=== PATIENT | female | born 1970 | race Caucasian/White ===

== ENCOUNTER 2017-03-06 03:30 | Emergency (ER) | payer BC ==
[2017-03-06 03:39] VITALS: BP 189/112
--- NOTE | 2017-03-06 03:40 | EDM.PDOC ---
ED HPI GENERAL MEDICAL PROBLEM - General Chief Complaint: ENT Problem Stated Complaint: PAIN AND SWELLING IN LEFT EAR Time Seen by Provider: 03/06/17 03:37 - History of Present Illness INITIAL COMMENTS - FREE TEXT/NARRATIVE: HISTORY AND PHYSICAL: History of present illness: Patient 46-year-old female presents with concern of left ear pain she states she had swelling and discharge from the left ear but no fever chills nausea vomiting Review of systems: As per history of present illness and below otherwise all systems reviewed and negative. Past medical history: As per history of present illness and as reviewed below otherwise noncontributory. Surgical history: As per history of present illness and as reviewed below otherwise noncontributory. Social history: No reported history of drug or alcohol abuse. Family history: As per history of present illness and as reviewed below otherwise noncontributory. Physical exam: HEENT: Atraumatic, normocephalic, pupils reactive, negative for conjunctival pallor or scleral icterus, mucous membranes moist, throat clear, neck supple, nontender, trachea midline. Left external auditory canal is inflamed and swollen TM is visualized and is uninvolved Lungs: Clear to auscultation, breath sounds equal bilaterally, chest nontender. Heart: S1S2, regular, negative for clicks, rubs, or JVD. Abdomen: Soft, nondistended, nontender. Negative for masses or hepatosplenomegaly. Negative for costovertebral tenderness. Pelvis: Stable nontender. Genitourinary: Deferred. Rectal: Deferred. Extremities: Atraumatic, negative for cords or calf pain. Neurovascular unremarkable. Neuro: Awake, alert, oriented. Cranial nerves II through XII unremarkable. Cerebellum unremarkable. Motor and sensory unremarkable throughout. Exam nonfocal. Diagnostics: None Therapeutics: None Impression: #1 left otitis externa Definitive disposition and diagnosis as appropriate pending reevaluation and review of above. - Related Data Allergies Allergy/AdvReac Type Severity Reaction Status Date / Time No Known Allergies Allergy Verified 11/07/15 11:18 Past Medical History - Past Health History Medical/Surgical History: Denies Medical/Surgical History Gastrointestinal History: Reports: Bowel Obstruction - Infectious Disease History Infectious Disease History: Reports: None Social & Family History - Family History Family Medical History: Noncontributory Cardiac: Reports: Heart Failure GI: Reports: Colon Polyps Endocrine/Metabolic: Reports: Diabetes, type II - Tobacco Use Smoking Status *Q: Never Smoker Second Hand Smoke Exposure: No - Alcohol Use Days Per Week of Alcohol Use: 2 Number of Drinks Per Day: 2 Total Drinks Per Week: 4 - Recreational Drug Use Recreational Drug Use: No ED ROS GENERAL - Review of Systems Review Of Systems: ROS reveals no pertinent complaints other than HPI. ED EXAM, GENERAL - Physical Exam Exam: See Below (See dictation) Departure - Departure Time of Disposition: 03:39 Disposition: Home, Self-Care 01 Condition: Good Clinical Impression: Otitis externa - Discharge Information Referrals: PCP,None [Primary Care Provider] - Additional Instructions: The following information is given to patients seen in the emergency department who are being discharged to home. This information is to outline your options for follow-up care. We provide all patients seen in our emergency department with a follow-up referral. The need for follow-up, as well as the timing and circumstances, are variable depending upon the specifics of your emergency department visit. If you don't have a primary care physician on staff, we will provide you with a referral. We always advise you to contact your personal physician following an emergency department visit to inform them of the circumstance of the visit and for follow-up with them and/or the need for any referrals to a consulting specialist. The emergency department will also refer you to a specialist when appropriate. This referral assures that you have the opportunity for followup care with a specialist. All of these measure are taken in an effort to provide you with optimal care, which includes your followup. Under all circumstances we always encourage you to contact your private physician who remains a resource for coordinating your care. When calling for followup care, please make the office aware that this follow-up is from your recent emergency room visit. If for any reason you are refused follow-up, please contact the [facility] emergency department at and asked to speak to the emergency department charge nurse. Cortisporin is prescribed Motrin/Tylenol as directed follow-up primary medical doctor 1-2 days return as needed as discussed
== END 2017-03-06 03:45 | disposition home or self-care (01) ==
LOC: MW.ED 03:30
DX: H60.92 Unspecified otitis externa, left ear (principal)
CPT/HCPCS: 99282

== ENCOUNTER 2017-06-08 08:22 | Day surgery (SDC) | payer BC ==
[~2017-06-08 08:22] MED LIST: Fluorescein 5 ML Vial ONE; Lactated Ringers 1,000 ML IV SCH; Sodium Chloride 0.9% 10 ML Syringe FLUSH PRN; Sodium Chloride 0.9% 2.5 ML Syringe FLUSH PRN; ceFAZolin 2 GM in Premix Bag 1 BAG IV ONE
--- NOTE | 2017-06-08 09:25 | PCM.PREANE ---
Preanesthetic Assessment - Anesthesia/Transfusion/Family Hx Anesthesia History: No Prior Anesthesia Transfusion History: Prior Transfusion Without Reaction - Physical Assessment NPO Status Date: 06/08/17 NPO Status Time: 03:00 O2 Sat by Pulse Oximetry: 98 Respiratory Rate: 18 Vital Signs: Last Vital Signs Temp 36.2 C 06/08/17 08:44 Pulse 78 06/08/17 08:44 Resp 18 06/08/17 08:44 BP 161/101 H 06/08/17 08:44 Pulse Ox 98 06/08/17 08:44 Height: 1.78 m Weight: 83.461 kg - Lab Values: Laboratory Last Values WBC 7.24 K/uL (4.0-11.0) 06/08/17 08:56 RBC 4.78 M/uL (4.30-5.90) 06/08/17 08:56 Hgb 15.2 g/dL (12.0-16.0) 06/08/17 08:56 Hct 44.0 % (36.0-46.0) 06/08/17 08:56 MCV 92.1 fL (80.0-98.0) 06/08/17 08:56 MCH 31.8 pg (27.0-32.0) 06/08/17 08:56 MCHC 34.5 g/dL (31.0-37.0) 06/08/17 08:56 RDW Std Deviation 43.0 fl (28.0-62.0) 06/08/17 08:56 RDW Coeff of Lauryn 13 % (11.0-15.0) 06/08/17 08:56 Plt Count 253 K/uL (150-400) 06/08/17 08:56 MPV 8.70 fL (7.40-12.00) 06/08/17 08:56 Nucleated RBC % 0.0 /100WBC 06/08/17 08:56 Nucleated RBCs # 0 K/uL 06/08/17 08:56 - Allergies Allergies/Adverse Reactions: Allergies Allergy/AdvReac Type Severity Reaction Status Date / Time No Known Allergies Allergy Verified 06/05/17 17:03 PreAnesthesia Questionnaire - Past Health History Medical/Surgical History: Denies Medical/Surgical History HEENT History: Reports: Other (See Below) Other HEENT History: wears glasses Gastrointestinal History: Reports: Other (See Below) Other Gastrointestinal History: some heartburn Genitourinary History: Reports: Urinary Incontinence 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: Reports: Fibroids, Neurological History: Reports: Migraines, Other (See Below) Other Neuro History: hx of motion sickness Hematologic History: Reports: Blood Transfusion(s) Other Hematologic History: after delivery of both children - Infectious Disease History Infectious Disease History: Reports: None - Past Surgical History HEENT Surgical History: Reports: None GI Surgical History: Reports: None - SUBSTANCE USE Smoking Status *Q: Never Smoker Second Hand Smoke Exposure: No Days Per Week of Alcohol Use: 2 Number of Drinks Per Day: 2 Total Drinks Per Week: 4 Recreational Drug Use History: No - HOME MEDS Home Medications: Home Meds . [No Known Home Meds] 03/06/17 [History] - CURRENT (IN HOUSE) MEDS Current Meds: Current Medications Lactated Ringer's (Ringers, Lactated) 1,000 mls @ 500 mls/hr IV .BOLUS OTONIEL Sodium Chloride (Saline Flush) 10 ml FLUSH ASDIRECTED PRN PRN Reason: Keep Vein Open Sodium Chloride (Saline Flush) 2.5 ml FLUSH ASDIRECTED PRN PRN Reason: Keep Vein Open Discontinued Medications Fluorescein Sodium (Ak-Fluor) Confirm Administered Dose 5 ml .ROUTE .STK-MED ONE Stop: 06/08/17 07:32 Cefazolin Sodium/Dextrose 2 gm (/ Premix) 50 mls @ 100 mls/hr IV ONETIME ONE Stop: 06/07/17 09:57
--- NOTE | 2017-06-08 09:26 | PCM.PREANE ---
Preanesthetic Assessment - Anesthesia/Transfusion/Family Hx Anesthesia History: No Prior Anesthesia Family History of Anesthesia Reaction: No Transfusion History: Prior Transfusion Without Reaction - Review of Systems General: No Symptoms Pulmonary: No Symptoms Cardiovascular: No Symptoms Gastrointestinal: No Symptoms Neurological: No Symptoms Other: Reports: None - Physical Assessment NPO Status Date: 06/08/17 NPO Status Time: 03:00 O2 Sat by Pulse Oximetry: 98 Respiratory Rate: 18 Vital Signs: Last Vital Signs Temp 36.2 C 06/08/17 08:44 Pulse 78 06/08/17 08:44 Resp 18 06/08/17 09:25 BP 161/101 H 06/08/17 08:44 Pulse Ox 98 06/08/17 09:25 Height: 1.78 m Weight: 83.461 kg ASA Class: 1 Mental Status: Alert & Oriented x3 Airway Class: Mallampati = 1 (veneer on maxillary incisors) Dentition: Reports: Normal Dentition ROM/Head Extension: Full Lungs: Clear to Auscultation, Normal Respiratory Effort - Lab Values: Laboratory Last Values WBC 7.24 K/uL (4.0-11.0) 06/08/17 08:56 RBC 4.78 M/uL (4.30-5.90) 06/08/17 08:56 Hgb 15.2 g/dL (12.0-16.0) 06/08/17 08:56 Hct 44.0 % (36.0-46.0) 06/08/17 08:56 MCV 92.1 fL (80.0-98.0) 06/08/17 08:56 MCH 31.8 pg (27.0-32.0) 06/08/17 08:56 MCHC 34.5 g/dL (31.0-37.0) 06/08/17 08:56 RDW Std Deviation 43.0 fl (28.0-62.0) 06/08/17 08:56 RDW Coeff of Lauryn 13 % (11.0-15.0) 06/08/17 08:56 Plt Count 253 K/uL (150-400) 06/08/17 08:56 MPV 8.70 fL (7.40-12.00) 06/08/17 08:56 Nucleated RBC % 0.0 /100WBC 06/08/17 08:56 Nucleated RBCs # 0 K/uL 06/08/17 08:56 - Allergies Allergies/Adverse Reactions: Allergies Allergy/AdvReac Type Severity Reaction Status Date / Time No Known Allergies Allergy Verified 06/05/17 17:03 - Anesthesia Plan Pre-Op Medication Ordered: None - Acknowledgements Anesthesia Type Planned: General Anesthesia Pt an Appropriate Candidate for the Planned Anesthesia: Yes Alternatives and Risks of Anesthesia Discussed w Pt/Guardian: Yes Pt/Guardian Understands and Agrees with Anesthesia Plan: Yes PreAnesthesia Questionnaire - Past Health History Medical/Surgical History: Denies Medical/Surgical History HEENT History: Reports: Other (See Below) Other HEENT History: wears glasses Gastrointestinal History: Reports: Other (See Below) Other Gastrointestinal History: some heartburn Genitourinary History: Reports: Urinary Incontinence 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: Reports: Fibroids, Neurological History: Reports: Migraines, Other (See Below) Other Neuro History: hx of motion sickness Hematologic History: Reports: Blood Transfusion(s) Other Hematologic History: after delivery of both children - Infectious Disease History Infectious Disease History: Reports: None - Past Surgical History HEENT Surgical History: Reports: None GI Surgical History: Reports: None - SUBSTANCE USE Smoking Status *Q: Never Smoker Second Hand Smoke Exposure: No Days Per Week of Alcohol Use: 2 Number of Drinks Per Day: 2 Total Drinks Per Week: 4 Recreational Drug Use History: No - HOME MEDS Home Medications: Home Meds . [No Known Home Meds] 03/06/17 [History] - CURRENT (IN HOUSE) MEDS Current Meds: Current Medications Lactated Ringer's (Ringers, Lactated) 1,000 mls @ 500 mls/hr IV .BOLUS OTONIEL Sodium Chloride (Saline Flush) 10 ml FLUSH ASDIRECTED PRN PRN Reason: Keep Vein Open Sodium Chloride (Saline Flush) 2.5 ml FLUSH ASDIRECTED PRN PRN Reason: Keep Vein Open Discontinued Medications Fluorescein Sodium (Ak-Fluor) Confirm Administered Dose 5 ml .ROUTE .STK-MED ONE Stop: 06/08/17 07:32 Cefazolin Sodium/Dextrose 2 gm (/ Premix) 50 mls @ 100 mls/hr IV ONETIME ONE Stop: 06/07/17 09:57
[2017-06-08 09:33] LABS: CHLORIDE,CL 106 mmol/L (98-110); SODIUM,NA 138 mmol/L (136-146)
[2017-06-08] MEDS ORDERED: Ondansetron 4 MG/2 ML SDV ONE (09:33)
[2017-06-08] MEDS ORDERED: Propofol 200 MG/20 ML SDV ONE ×2 (09:33→13:24)
[2017-06-08] MEDS ORDERED: fentaNYL 100 MCG/2 ML SDV ONE ×3 (09:33→13:18)
[2017-06-08] MEDS ORDERED: Rocuronium 10 MG/ML 10 ML Syringe ONE (09:34)
[2017-06-08] MEDS ORDERED: Midazolam 1 MG/ML 2 ML SDV ONE (09:34)
[2017-06-08] MEDS ORDERED: Dexamethasone 4 MG/ML 5 ML MDV ONE (09:35)
[2017-06-08] MEDS ORDERED: Ketorolac 30 MG/ML SDV ONE (12:13)
[2017-06-08] MEDS ORDERED: Sugammadex Sodium 200 MG/2 ML VIAL ONE (12:15)
[2017-06-08] MEDS ORDERED: ceFAZolin 1 GM Vial ONE (12:42)
[2017-06-08] MEDS ORDERED: Sodium Chloride 0.9% 20 ML ONE (12:42)
[2017-06-08] MEDS ORDERED: Morphine 10 MG/ML Syringe ONE (12:42)
[2017-06-08] MEDS ORDERED: Morphine 2 MG/ML Syringe IVPUSH PRN (14:02)
[2017-06-08] MEDS ORDERED: Promethazine 25 MG/ML SDV IM PRN (14:02)
[2017-06-08] MEDS ORDERED: Ondansetron 4 MG/2 ML SDV IVPUSH PRN (14:02)
[2017-06-08] MEDS ORDERED: Morphine 4 MG/ML Syringe IVPUSH PRN (14:02)
[2017-06-08] MEDS ORDERED: Ketorolac 30 MG/ML SDV IVPUSH PRN (14:02)
[2017-06-08] MEDS ORDERED: Ketorolac 30 MG/ML SDV IVPUSH ONE (14:02)
--- NOTE | 2017-06-08 14:07 | PCM.OPNOTE ---
- General Post-Op/Procedure Note Date of Surgery/Procedure: 06/08/17 Pre Op Diagnosis: DUB,RAD Post-Op Diagnosis: Same Anesthesia Technique: General ET Tube Primary Surgeon: Vijay Escalante Electric Arc Furnace Operator: Antonella Valencia EBL in mLs: 200 Complications: None Condition: Good
[2017-06-08] MEDS ORDERED: diphenhydrAMINE 50 MG/ML SDV ONE (15:02)
[2017-06-08] MEDS ORDERED: diphenhydrAMINE 50 MG/ML SDV IVPUSH ONE (15:03)
--- NOTE | 2017-06-08 15:07 | PCM.POSTAN ---
POST ANESTHESIA ASSESSMENT - MENTAL STATUS Mental Status: Alert, Oriented Free Text/Narrative:: elevated rash noted on face without patient complaint. given benadryl iv (see orders). dr. Escalante made aware. unable to find even a probable etiology; patient preseneted as "without allergies". Stable vitals. will discharge to floor. - RESPIRATORY Respiratory Status: Respiratory Rate WNL, Airway Patent, O2 Saturation Stable - CARDIOVASCULAR CV Status: Pulse Rate WNL, Blood Pressure Stable - GASTROINTESTINAL GI Status: No Symptoms - POST OP HYDRATION Hydration Status: Adequate & Stable
[2017-06-08] MEDS: Acetaminophen/oxyCODONE 325-5 MG Tab PO PRN ×2 (17:34→22:28)
--- NOTE | 2017-06-08 18:40 | OR ---
SURGEON: Vijay Escalante MD DATE OF PROCEDURE: PREOPERATIVE DIAGNOSIS: Menometrorrhagia, stress urinary incontinence. POSTOPERATIVE DIAGNOSIS: Menometrorrhagia, stress urinary incontinence. OPERATION PERFORMED: Total vaginal hysterectomy, vaginal, bilateral salpingectomy, preserving both ovary and Solyx TVT for stress incontinence, and cystoscopy. BEAN SNAPPER: FARRAH Mary. ANESTHESIA: General endotracheal intubation. ESTIMATED BLOOD LOSS: 150 to 200 mL. COMPLICATIONS: None. FINDINGS: Uterus about 8-week size, stress urinary incontinence. INDICATION FOR SURGERY: Refer to the admit note. PROCEDURE IN DETAIL: The patient was brought to the OR, properly identified, and after adequate general anesthesia, the patient was prepped and draped in sterile fashion as usual. After taking the time-out, the procedure was started by placing a short- weighted speculum in the vagina. Single-tooth tenaculum was applied to the cervix using electrocautery, a circular incision in the vaginal mucosa around the cervix was done. The posterior cul-de-sac was entered posteriorly, and the perineum and the vagina tacked posteriorly with 2-0 Vicryl and held for further identification. A short-weighted speculum replaced with an extending long- weighted speculum. The uterosacral ligament identified from both sides, clamped with a curved Zeppelin, transected, and suture ligated with 2-0 Vicryl pop-off and held for further identification. The same thing was done with the cardinal ligament. Then, the cervicovesical space was entered anteriorly and the broad ligament was clamped from both sides with curved Zeppelin, transected, and suture ligated with 2-0 Vicryl pop-off. The uterine vessel suture ligated at this step. The round ligament from both sides clamped with a curved Zeppelin, transected, and suture ligated with 2-0 Vicryl pop-off. Then, the uterus was delivered posteriorly. The superior pedicle was clamped with 90-degree zeppelin transected and uterus was removed, and then the superior pedicle was tied twice with a free tie on both sides. Then, attention was paid to the tubes and it was picked with the [place], and then 90-degree Adson clamp was placed at the base of the mesosalpinx and the tubes removed, and the clamp was tied with 2-0 Vicryl on both sides. Inspection of the entire operative field shows no oozing, no bleeding. The uterosacral ligament and cardinal ligament anchored to the vagina at 3 and 9 o'clock for added vaginal support, and the vagina is closed with 2-0 Vicryl interrupted [id number] suture. Next, attention was paid to the anterior vaginal wall and the half an inch beneath the urethra was infiltrated with copious amount of normal saline and then opened at the midline with electrocautery and dissected laterally in a tunneling fashion making a tunnel for the Solyx TVT. The Solyx TVT was in place behind the pubic rami and pulled with due amount of tension to elevate the urethrovesical angle. Once this was done, we proceeded to close the anterior vaginal wall incision with 2-0 Vicryl continuous for hemostasis. While we were doing that, we asked the Anesthesia people to give the patient 5 mL of Thorazine and then cystoscopy was performed. The bladder was intact. Both ureteric orifices were seen with the dye coming from both of them. Thus, the patency of both ureters verified. Satisfied with these findings, the procedure ended at this time. Instrument and sponge count were correct. The patient tolerated the procedure well, went to recovery room in stable general condition. DAMINE / SAHARA /[id number]
[2017-06-09] MEDS: Acetaminophen/oxyCODONE 325-5 MG Tab PO PRN ×2 (00:54→05:04)
[2017-06-09 05:41] VITALS: BP 145/88
[2017-06-09 05:57] LABS: CHLORIDE,CL 104 mmol/L (98-110); SODIUM,NA 137 mmol/L (136-146)
--- NOTE | 2017-06-09 08:12 | PCM.SURGPN ---
- General Info Date of Service: 06/09/17 POD#: 1 Functional Status: Reports: Pain Controlled - Review of Systems General: Reports: No Symptoms HEENT: Reports: No Symptoms Pulmonary: Reports: No Symptoms Cardiovascular: Reports: No Symptoms Gastrointestinal: Reports: No Symptoms Genitourinary: Reports: No Symptoms Musculoskeletal: Reports: No Symptoms Skin: Reports: No Symptoms Neurological: Reports: No Symptoms Psychiatric: Reports: No Symptoms - Patient Data Vitals - Most Recent: Last Vital Signs Temp 37.0 C 06/09/17 05:40 Pulse 82 06/09/17 05:40 Resp 18 06/09/17 05:40 BP 145/88 H 06/09/17 05:40 Pulse Ox 95 06/09/17 05:40 Weight - Most Recent: 83.461 kg I&O - Last 24 Hours: Intake & Output 06/08/17 06/09/17 06/09/17 22:59 06:59 14:59 Intake Total 3150 400 Output Total 100 250 Balance 3050 150 Lab Results Last 24 Hrs: Laboratory Results - last 24 hr 06/08/17 06/08/17 06/08/17 Range/Units 08:56 08:56 08:56 WBC 7.24 (4.0-11.0) K/uL RBC 4.78 (4.30-5.90) M/uL Hgb 15.2 (12.0-16.0) g/dL Hct 44.0 (36.0-46.0) % MCV 92.1 (80.0-98.0) fL MCH 31.8 (27.0-32.0) pg MCHC 34.5 (31.0-37.0) g/dL RDW Std Deviation 43.0 (28.0-62.0) fl RDW Coeff of Lauryn 13 (11.0-15.0) % Plt Count 253 (150-400) K/uL MPV 8.70 (7.40-12.00) fL Neut % (Auto) (48.0-80.0) % Lymph % (Auto) (16.0-40.0) % Mathews % (Auto) (0.0-15.0) % Eos % (Auto) (0.0-7.0) % Baso % (Auto) (0.0-1.5) % Neut # (Auto) (1.4-5.7) K/uL Lymph # (Auto) (0.6-2.4) K/uL Mathews # (Auto) (0.0-0.8) K/uL Eos # (Auto) (0.0-0.7) K/uL Baso # (Auto) (0.0-0.1) K/uL Nucleated RBC % 0.0 /100WBC Nucleated RBCs # 0 K/uL Sodium 138 (136-146) mmol/L Potassium 4.0 (3.5-5.1) mmol/L Chloride 106 (98-110) mmol/L Carbon Dioxide 24 (21-31) mmol/L BUN 20 (6.0-23.0) mg/dL Creatinine 0.8 (0.6-1.5) mg/dL Est Cr Clr Drug Dosing 94.01 mL/min Estimated GFR (MDRD) > 60.0 ml/min Glucose 95 (60-110) mg/dL Calcium 9.2 (8.8-10.8) mg/dL HCG, Qual (NEG) Blood Type A POSITIVE Antibody Screen NEGATIVE 06/08/17 06/09/17 06/09/17 Range/Units 08:56 04:58 04:58 WBC 17.49 H (4.0-11.0) K/uL RBC 4.03 L (4.30-5.90) M/uL Hgb 12.7 (12.0-16.0) g/dL Hct 37.2 (36.0-46.0) % MCV 92.3 (80.0-98.0) fL MCH 31.5 (27.0-32.0) pg MCHC 34.1 (31.0-37.0) g/dL RDW Std Deviation 43.2 (28.0-62.0) fl RDW Coeff of Lauryn 13 (11.0-15.0) % Plt Count 280 (150-400) K/uL MPV 8.80 (7.40-12.00) fL Neut % (Auto) 86.8 H (48.0-80.0) % Lymph % (Auto) 4.7 L (16.0-40.0) % Mathews % (Auto) 8.4 (0.0-15.0) % Eos % (Auto) 0.0 (0.0-7.0) % Baso % (Auto) 0.1 (0.0-1.5) % Neut # (Auto) 15.2 H (1.4-5.7) K/uL Lymph # (Auto) 0.8 (0.6-2.4) K/uL Mathews # (Auto) 1.5 H (0.0-0.8) K/uL Eos # (Auto) 0.0 (0.0-0.7) K/uL Baso # (Auto) 0.0 (0.0-0.1) K/uL Nucleated RBC % 0.0 /100WBC Nucleated RBCs # 0 K/uL Sodium 137 (136-146) mmol/L Potassium 4.4 (3.5-5.1) mmol/L Chloride 104 (98-110) mmol/L Carbon Dioxide 24 (21-31) mmol/L BUN 19 (6.0-23.0) mg/dL Creatinine 0.8 (0.6-1.5) mg/dL Est Cr Clr Drug Dosing 94.01 mL/min Estimated GFR (MDRD) > 60.0 ml/min Glucose 145 H (60-110) mg/dL Calcium 8.6 L (8.8-10.8) mg/dL HCG, Qual NEGATIVE (NEG) Blood Type Antibody Screen Med Orders - Current: Current Medications Lactated Ringer's (Ringers, Lactated) 1,000 mls @ 500 mls/hr IV .BOLUS OTONIEL Ketorolac Tromethamine (Toradol) 30 mg IVPUSH Q6H PRN PRN Reason: Pain (severe 7-10) Stop: 06/13/17 14:02 Morphine Sulfate (Morphine) 2 mg IVPUSH Q2H PRN PRN Reason: Pain (severe 7-10) Morphine Sulfate (Morphine) 4 mg IVPUSH Q2H PRN PRN Reason: Pain (severe 7-10) Ondansetron HCl (Zofran) 4 mg IVPUSH Q6H PRN PRN Reason: Nausea/Vomiting Oxycodone/Acetaminophen (Percocet 325-5 Mg) 1 tab PO Q4H PRN PRN Reason: Pain (moderate 4-6) Last Admin: 06/09/17 05:04 Dose: 1 tab Oxycodone/Acetaminophen (Percocet 325-5 Mg) 2 tab PO Q4H PRN PRN Reason: Pain (moderate 4-6) Last Admin: 06/09/17 00:54 Dose: 1 tab Promethazine HCl (Phenergan) 25 mg IM Q6H PRN PRN Reason: Nausea/Vomiting Sodium Chloride (Saline Flush) 10 ml FLUSH ASDIRECTED PRN PRN Reason: Keep Vein Open Sodium Chloride (Saline Flush) 2.5 ml FLUSH ASDIRECTED PRN PRN Reason: Keep Vein Open Discontinued Medications Cefazolin Sodium (Ancef) Confirm Administered Dose 2 gm .ROUTE .STK-MED ONE Stop: 06/08/17 12:43 Dexamethasone (Dexamethasone) Confirm Administered Dose 20 mg .ROUTE .STK-MED ONE Stop: 06/08/17 09:36 Diphenhydramine HCl (Benadryl) 12.5 mg IVPUSH ONETIME ONE Stop: 06/08/17 15:04 Last Admin: 06/08/17 15:04 Dose: 12.5 mg Diphenhydramine HCl (Benadryl) Confirm Administered Dose 50 mg .ROUTE .STK-MED ONE Stop: 06/08/17 15:03 Last Admin: 06/08/17 15:32 Dose: Not Given Fentanyl (Sublimaze) Confirm Administered Dose 100 mcg .ROUTE .STK-MED ONE Stop: 06/08/17 09:34 Fentanyl (Sublimaze) Confirm Administered Dose 100 mcg .ROUTE .STK-MED ONE Stop: 06/08/17 12:53 Fentanyl (Sublimaze) Confirm Administered Dose 100 mcg .ROUTE .STK-MED ONE Stop: 06/08/17 13:19 Fluorescein Sodium (Ak-Fluor) Confirm Administered Dose 5 ml .ROUTE .STK-MED ONE Stop: 06/08/17 07:32 Cefazolin Sodium/Dextrose 2 gm (/ Premix) 50 mls @ 100 mls/hr IV ONETIME ONE Stop: 06/07/17 09:57 Last Admin: 06/08/17 15:32 Dose: Not Given Acetaminophen (Ofirmev) Confirm Administered Dose 100 mls @ as directed IV .STK- MED ONE Stop: 06/08/17 12:15 Sodium Chloride (Normal Saline) Confirm Administered Dose 20 mls @ as directed .ROUTE .STK-MED ONE Stop: 06/08/17 12:43 Ketorolac Tromethamine (Toradol) Confirm Administered Dose 30 mg .ROUTE .STK- MED ONE Stop: 06/08/17 12:14 Ketorolac Tromethamine (Toradol) 30 mg IVPUSH ONETIME ONE Stop: 06/08/17 14:03 Last Admin: 06/08/17 15:35 Dose: Not Given Lidocaine HCl (Xylocaine-Mpf 1%) Confirm Administered Dose 5 ml .ROUTE .STK-MED ONE Stop: 06/08/17 09:34 Midazolam HCl (Versed 1 Mg/Ml) Confirm Administered Dose 2 mg .ROUTE .STK-MED ONE Stop: 06/08/17 09:35 Morphine Sulfate (Morphine) Confirm Administered Dose 10 mg .ROUTE .STK-MED ONE Stop: 06/08/17 12:43 Ondansetron HCl (Zofran) Confirm Administered Dose 4 mg .ROUTE .STK-MED ONE Stop: 06/08/17 09:34 Propofol (Diprivan 20 Ml) Confirm Administered Dose 200 mg .ROUTE .STK-MED ONE Stop: 06/08/17 09:34 Propofol (Diprivan 20 Ml) Confirm Administered Dose 200 mg .ROUTE .STK-MED ONE Stop: 06/08/17 13:25 Rocuronium [place] (Zemuron) Confirm Administered Dose 100 mg .ROUTE .STK-MED ONE Stop: 06/08/17 09:35 - Exam Wound/Incisions: Healing Well General: Alert, Oriented HEENT: Pupils Equal Neck: Supple Lungs: Clear to Auscultation, Normal Respiratory Effort Cardiovascular: Regular Rate, Regular Rhythm GI/Abdominal Exam: Normal Bowel Sounds, Soft, Non-Tender, No Organomegaly, No Distention, No Abnormal Bruit, No Mass, Pelvis Stable Extremities: Normal Inspection, Normal Range of Motion, Non-Tender, No Pedal Edema, Normal Capillary Refill Skin: Warm, Dry, Intact Neurological: No New Focal Deficit Psy/Mental Status: Alert, Normal Affect, Normal Mood - Problem List Review Problem List Initiated/Reviewed/Updated: Yes - My Orders Last 24 Hours: Active Orders 24 hr Category Date Time Status Patient Status [ADT] Routine ADT 06/08/17 14:02 Active Notify Provider Vital Signs [RC] ASDIRECTED Care 06/08/17 14:02 Active Oxygen Therapy [RC] ASDIRECTED Care 06/08/17 14:02 Active RT Incentive Spirometry [RC] Q2HWA Care 06/08/17 14:02 Active Up With Assistance [RC] PER UNIT ROUTINE Care 06/08/17 14:02 Active Up ad Cydney [RC] PER UNIT ROUTINE Care 06/08/17 14:02 Active Vital Signs [RC] Q4H Care 06/08/17 14:02 Active Regular Diet [DIET] Diet 06/08/17 Dinner Active Acetaminophen/oxyCODONE [Percocet 325-5 MG] Med 06/08/17 14:02 Active 1 tab PO Q4H PRN Acetaminophen/oxyCODONE [Percocet 325-5 MG] Med 06/08/17 14:02 Active 2 tab PO Q4H PRN Ketorolac [Toradol] Med 06/08/17 12:13 Once 30 mg .ROUTE .STK-MED ONE Ketorolac [Toradol] Med 06/08/17 14:02 Active 30 mg IVPUSH Q6H PRN Midazolam [Versed 1 MG/ML] Med 06/08/17 09:34 Once 2 mg .ROUTE .STK-MED ONE Morphine Med 06/08/17 14:02 Active 2 mg IVPUSH Q2H PRN Morphine Med 06/08/17 14:02 Active 4 mg IVPUSH Q2H PRN Ondansetron [Zofran] Med 06/08/17 14:02 Active 4 mg IVPUSH Q6H PRN Promethazine [Phenergan] Med 06/08/17 14:02 Active 25 mg IM Q6H PRN diphenhydrAMINE [Benadryl] Med 06/08/17 15:02 Once 50 mg .ROUTE .STK-MED ONE fentaNYL [Sublimaze] Med 06/08/17 12:52 Once 100 mcg .ROUTE .STK-MED ONE fentaNYL [Sublimaze] Med 06/08/17 13:18 Once 100 mcg .ROUTE .STK-MED ONE Peripheral IV Discontinue [OM.PC] Routine Oth 06/08/17 14:02 Ordered Sequential Compression Device [OM.PC] Per Unit Routine Oth 06/08/17 14:02 Ordered Resuscitation Status Routine Resus Stat 06/08/17 14:02 Ordered Medication Orders Lactated Ringer's (Ringers, Lactated) 1,000 mls @ 500 mls/hr IV .BOLUS OTONIEL Ketorolac Tromethamine (Toradol) 30 mg IVPUSH Q6H PRN PRN Reason: Pain (severe 7-10) Stop: 06/13/17 14:02 Morphine Sulfate (Morphine) 2 mg IVPUSH Q2H PRN PRN Reason: Pain (severe 7-10) Morphine Sulfate (Morphine) 4 mg IVPUSH Q2H PRN PRN Reason: Pain (severe 7-10) Ondansetron HCl (Zofran) 4 mg IVPUSH Q6H PRN PRN Reason: Nausea/Vomiting Oxycodone/Acetaminophen (Percocet 325-5 Mg) 1 tab PO Q4H PRN PRN Reason: Pain (moderate 4-6) Last Admin: 06/09/17 05:04 Dose: 1 tab Admin: 06/08/17 22:28 Dose: 1 tab Oxycodone/Acetaminophen (Percocet 325-5 Mg) 2 tab PO Q4H PRN PRN Reason: Pain (moderate 4-6) Last Admin: 06/09/17 00:54 Dose: 1 tab Admin: 06/08/17 17:34 Dose: 2 tab Promethazine HCl (Phenergan) 25 mg IM Q6H PRN PRN Reason: Nausea/Vomiting Sodium Chloride (Saline Flush) 10 ml FLUSH ASDIRECTED PRN PRN Reason: Keep Vein Open Sodium Chloride (Saline Flush) 2.5 ml FLUSH ASDIRECTED PRN PRN Reason: Keep Vein Open - Assessment Assessment (Free Text/Narrative):: Status post vaginal hysterectomy and TVT postoperative day #1 the patient is doing well on regular diet ambulatory voiding without any problem no vaginal bleeding her vital signs stable and had lab work essentially is normal - Plan Plan (Free Text/Narrative):: The patient will be sent home today prescription for Percocet 7.5/325 for postoperative pain is giving the postvasectomy instruction is given to the patient she is to come to the office 1 week from her discharge for late postoperative examination
--- NOTE | 2017-06-09 14:02 | PCM48HPAN ---
Post Anesthesia Note - EVALUATION WITHIN 48HRS OF ANESTHETIC Vital Signs in Normal Range: Yes Patient Participated in Evaluation: Yes Respiratory Function Stable: Yes Airway Patent: Yes Cardiovascular Function Stable: Yes Hydration Status Stable: Yes Pain Control Satisfactory: Yes Nausea and Vomiting Control Satisfactory: Yes Mental Status Recovered: Yes
== END 2017-06-09 08:45 | disposition home or self-care (01) ==
LOC: MW.SDS 08:22 → MW.MS 14:02 → MW.SDS 06-09 08:45
PROVIDERS: ATTEND Obstetrics & Gynecology
DX: D25.9 Leiomyoma of uterus, unspecified (principal); N92.1 Excessive and frequent menstruation with irregular cycle; N39.3 Stress incontinence (female) (male)
CPT/HCPCS: 36415; 57288; 58262; 80048; 84703; 85025; 85027; 86850; 86900; 86901; A9270; C9399; J0690; J1100; J1200; J1885; J2250; J2270; J2405; J3010; 00944; 88309; C1781; J2704

== ENCOUNTER 2018-09-11 02:52 | Emergency (ER) | payer SELFPAY ==
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
[2018-09-11 04:48] VITALS: BP 164/106
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
== END 2018-09-11 04:40 | disposition home or self-care (01) ==
LOC: MW.ED 02:52
DX: S20.219A Contusion of unspecified front wall of thorax, initial encounter (principal); Y04.2XXA Assault by strike against or bumped into by another person, initial encounter
CPT/HCPCS: 71046; 71046-26; 71120; 71120-26; 99283; 99284-25

== ENCOUNTER 2019-07-01 11:38 | Emergency (ER) | payer OTHER ==
[2019-07-01 13:02] LABS: BLOOD UREA NITROGEN,BUN 12 mg/dL (7.0-18.0); CARBON DIOXIDE,CO2 28.8 mmol/L (21.0-32.0); CHLORIDE,CL 103 mmol/L (98-107); GLUCOSE RANDOM 86 mg/dL (74-106); SODIUM,NA 138 mmol/L (136-145)
[2019-07-01 13:10] VITALS: BP 136/99; PULSE 98
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
--- NOTE | 2019-07-01 13:52 | EDM.PDOC ---
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 from 7: 30 am to 5:00 pm. Obstetrical and Gynecological Care: [facility], , Monday through Monday 8 AM to 5 PM. [address] [place] [id number]. Eyecare: If you have an eye injury you should follow up with your health information systems technician or with [facility], at [phone] or [phone] , they are located at [address] [facility], [place] [address]. Sepsis Event Note - Evaluation Sepsis Screening Result: No Definite Risk - Focused Exam Vital Signs: Vital Signs Temp Pulse Resp BP Pulse Ox 07/01/19 13:09 98 13 136/99 H 96 07/01/19 11:59 36.8 C 124 H 17 133/56 L 98 Date Exam was Performed: 07/01/19 Time Exam was Performed: 13:51
== END 2019-07-01 14:19 | disposition home or self-care (01) ==
LOC: MW.ED 11:38
DX: S22.42XD Multiple fractures of ribs, left side, subsequent encounter for fracture with routine healing (principal); V49.40XD Driver injured in collision with unspecified motor vehicles in traffic accident, subsequent encounter
CPT/HCPCS: 36415; 71046; 71046-26; 80053; 80305-QW; 85025; 99283; 99285-25

== ENCOUNTER 2020-06-15 14:40 | Emergency (ER) | payer MEDICAID ==
--- NOTE | 2020-06-15 16:11 | CR ---
Indication: Laceration Technique: Three views of the left hand Comparison: None Findings: Metallic rings impede complete visualization of the 3rd and 4th proximal phalanges. No fracture is demonstrated. There is no evidence of joint dislocation. Focal skin defect is noted at the thenar eminence, presumably representing laceration. There is mild underlying soft tissue edema. There is no radiopaque foreign body. Impression: 1. No acute osseus abnormality. 2. No radiopaque foreign body. Dictated by Colby Hackett MD @ Jun 15 2020 4:07PM Signed by Dr. Colby Hackett @ Jun 15 2020 4:10PM
--- NOTE | 2020-06-15 17:05 | EDM.PDOC ---
ED HPI GENERAL MEDICAL PROBLEM - General Chief Complaint: Laceration Stated Complaint: LACERATION TO LEFT HAND Time Seen by Provider: 06/15/20 14:51 Source of Information: Reports: Patient History Limitations: Reports: No Limitations - History of Present Illness INITIAL COMMENTS - FREE TEXT/NARRATIVE: HISTORY AND PHYSICAL: History of present illness: Patient is a 49-year-old female who presents to the ED today with concern of left hand laceration that occurred just prior to arrival to the ED. Patient states that she is helping remodel her home and she was cutting wood on a table saw. Patient states her hand slipped and caught the saw. Patient states she removed it quickly and applied pressure to the area. Patient states that she did not feel that it was very deep but thought it might need to be sutured in order to stop the bleeding. Patient states that her tetanus is up-to-date as she received this 1 year ago. She states that she has been fully able to move the hand. Patient denies fever, chills, chest pain, shortness of breath, or cough. Denies headache, neck stiff ness, change in vision, syncope, or near syncope. Denies nausea, vomiting, abdominal pain, diarrhea, constipation, or dysuria. Has not noted any blood in urine or stool. Patient has been eating and drinking appropriately. Review of systems: As per history of present illness and below otherwise all systems reviewed and negative. Past medical history: As per history of present illness and as reviewed below otherwise noncontributory. Surgical history: As per history of present illness and as reviewed below otherwise noncontributory. Social history: See social history for further information Family history: As per history of present illness and as reviewed below otherwise non contributory. Physical exam: General: Patient is alert, oriented, and in no acute distress. Patient sitting comfortably on exam table. HEENT: Atraumatic, normocephalic, pupils equal and reactive bilaterally, negative for conjunctival pallor or scleral icterus, mucous membranes moist, TMs normal bilaterally, throat clear, neck supple, nontender, trachea midline. No drooling or trismus noted. No meningeal signs. No hot potato voice noted. Lungs: Clear to auscultation, breath sounds equal bilaterally, chest nontender. Heart: S1S2, regular rate and rhythm without overt murmur Abdomen: Soft, nondistended, nontender. Negative for masses or hepatosplenomegaly. Negative for costovertebral tenderness. Pelvis: Stable nontender. Genitourinary: Deferred. Rectal: Deferred. Skin: Intact, warm, dry. No lesions or rashes noted. Extremities: There is a 4 cm irregular subcutaneous laceration of the left lateral dorsal hand with hemostasis. Patient has full range of motion of all digits of the left hand and wrist without deficit. Radial pulses grossly intact of the left upper extremity with capillary refill less than 2 seconds. Otherwise, atraumatic, negative for cords or calf pain. Neurovascular unremarkable. Neuro: Awake, alert, oriented. Cranial nerves II through XII unremarkable. Cerebellum unremarkable. Motor and sensory unremarkable throughout. Exam nonfocal. Notes: Signs and symptoms that would prompt return to the ED thoroughly discussed with patient. Discussed importance for follow-up with a primary care provider. Voices understanding and is agreeable to plan of care. Denies any further questions or concerns at this time. Diagnostics: Hand x-ray Therapeutics: Sutures, lidocaine, sterile bandage placed by nursing staff Prescription: None Impression: Hand laceration, left Plan: 1. Keep the area clean and dry. Continue to monitor for signs of infection as discussed. Sutures to be removed in 7-10 days. 2. Tylenol and/or ibuprofen as directed and as needed for pain management and discomfort. 3. Please follow-up with your primary care provider as discussed. Return to the ED as needed and as discussed. Definitive disposition and diagnosis as appropriate pending reevaluation and review of above. - Related Data Allergies Allergy/AdvReac Type Severity Reaction Status Date / Time No Known Allergies Allergy Verified 06/15/20 15:25 Home Meds: Home Meds . [No Known Home Meds] 06/15/20 [History] Past Medical History - Past Health History Medical/Surgical History: Denies Medical/Surgical History HEENT History: Reports: Other (See Below) Other HEENT History: wears glasses Cardiovascular History: Reports: None Respiratory History: Reports: None Gastrointestinal History: Reports: None Other Gastrointestinal History: some heartburn Genitourinary History: Reports: None HEART SPECIALIST History: Reports: None Musculoskeletal History: Reports: None Neurological History: Reports: Migraines, Other (See Below) Other Neuro History: Hx. of motion sickness Psychiatric History: Reports: None Endocrine/Metabolic History: Reports: None Hematologic History: Reports: Blood Transfusion(s) Other Hematologic History: after delivery of both children Immunologic History: Reports: None Oncologic (Cancer) History: Reports: None Dermatologic History: Reports: None - Infectious Disease History Infectious Disease History: Reports: Chicken Pox - Past Surgical History Head Surgeries/Procedures: Reports: None HEENT Surgical History: Reports: None GI Surgical History: Reports: None Social & Family History - Family History Family Medical History: No Pertinent Family History Cardiac: Reports: Heart Failure GI: Reports: Colon Polyps Endocrine/Metabolic: Reports: Diabetes, type II - Caffeine Use Caffeine Use: Reports: None Caffeine Use Comment: "a lot" ED ROS GENERAL - Review of Systems Review Of Systems: Comprehensive ROS is negative, except as noted in HPI. ED EXAM, SKIN/RASH Exam: See Below (see dictation) ED SKIN PROCEDURES - Laceration/Wound Repair Left Lateral Dorsal Hand Appearance: Subcutaneous, Irregular, Clean Distal NVT: Neuro & Vascular Intact, No Tendon Injury Anesthetic Type: Local Local Anesthesia - Lidocaine (Xylocaine): 1% Plain Local Anesthetic Volume: Other (7cc) Skin Prep: Chlorhexidine (Hibiciens), Providone-Iodine (Betadine), Saline Saline Irrigation (cc's): 250 Exploration/Debridement/Repair: Wound Explored, In a Bloodless Field, Explored to Base, No Foreign Material Found Closed with: Sutures Lac/Wound length In cm: 4 Suture Size: 4-0 # of Sutures: 9 Suture Type: Silk, Interrupted Drain Placement: No Sterile Dressing Applied: Nurse Tetanus Status Addressed: Yes (up to date) Complications: No Course - Vital Signs Last Recorded V/S: Last Vital Signs Temp 98.0 F 06/15/20 15:16 Pulse 94 06/15/20 15:16 Resp 16 06/15/20 15:16 BP 159/109 H 06/15/20 15:16 Pulse Ox 93 L 06/15/20 15:16 - Orders/Labs/Meds Meds: Medications Discontinued Medications Generic Name Dose Route Start Last Admin Trade Name Freq PRN Reason Stop Dose Admin Lidocaine HCl 10 ml 06/15/20 15:36 06/15/20 15:47 Xylocaine-Mpf 1% INJECT 06/15/20 15:37 10 ml ONETIME ONE Administration Departure - Departure Time of Disposition: 17:05 Disposition: Home, Self-Care 01 Clinical Impression: Hand laceration Qualifiers: Encounter type: initial encounter Foreign body presence: without foreign body Laterality: left Qualified Code(s): S61.412A - Laceration without foreign body of left hand, initial encounter - Discharge Information Referrals: PCP,None [Primary Care Provider] - Forms: ED Department Discharge Additional Instructions: The following information is given to patients seen in the emergency department who are being discharged to home. This information is to outline your options for follow-up care. We provide all patients seen in our emergency department with a follow-up referral. The need for follow-up, as well as the timing and circumstances, are variable depending upon the specifics of your emergency department visit. If you don't have a primary care physician on staff, we will provide you with a referral. We always advise you to contact your personal physician following an emergency department visit to inform them of the circumstance of the visit and for follow-up with them and/or the need for any referrals to a consulting specialist. The emergency department will also refer you to a specialist when appropriate. This referral assures that you have the opportunity for follow-up care with a specialist. All of these measure are taken in an effort to provide you with optimal care, which includes your follow-up. Under all circumstances we always encourage you to contact your private physician who remains a resource for coordinating your care. When calling for follow-up care, please make the office aware that this follow-up is from your recent emergency room visit. If for any reason you are refused follow-up, please contact the [facility] Emergency Department at and asked to speak to the emergency department charge nurse. [facility] Primary Care [address] [place] [address] [id number] [address] [id number] 1. Keep the area clean and dry. Continue to monitor for signs of infection as discussed. Sutures to be removed in 7-10 days. 2. Tylenol and/or ibuprofen as directed and as needed for pain management and discomfort. 3. Please follow-up with your primary care provider as discussed. Return to the ED as needed and as discussed. Sepsis Event Note (ED) - Evaluation Sepsis Screening Result: No Definite Risk - Focused Exam Vital Signs: Vital Signs Temp Pulse Resp BP Pulse Ox 06/15/20 15:16 98.0 F 94 16 159/109 H 93 L
[2020-06-15 17:26] VITALS: BP 145/90; PULSE 72
== END 2020-06-15 17:23 | disposition home or self-care (01) ==
LOC: MW.ED 14:40
DX: S61.412A Laceration without foreign body of left hand, initial encounter (principal); W29.8XXA Contact with other powered hand tools and household machinery, initial encounter
CPT/HCPCS: 12002; 73130; 99283; J2001; 99282

== ENCOUNTER 2021-01-02 16:42 | Emergency (ER) | payer MEDICAID, OTHER ==
[2021-01-02] MEDS ORDERED: Ketorolac 60 MG/2 ML SDV IM ONE (17:00)
--- NOTE | 2021-01-02 17:05 | EDM.PDOC ---
ED HPI GENERAL MEDICAL PROBLEM - General Chief Complaint: Lower Extremity Injury/Pain Stated Complaint: LT FOOT INJURY Time Seen by Provider: 01/02/21 16:54 Source of Information: Reports: Patient History Limitations: Reports: No Limitations - History of Present Illness INITIAL COMMENTS - FREE TEXT/NARRATIVE: HISTORY AND PHYSICAL: History of present illness: The patient is a 50-year-old female who dropped an air conditioner on her left foot today at around 11 AM. She presents to the emergency room with a swollen left foot. She states that she did apply ice and did take Tylenol but the pain is getting worse. She has been using crutches today. Patient denies any fever, chills, headache, change in vision, syncope or near syncope. Denies any chest pain, back pain, shortness of breath or cough. Denies any abdominal pain, nausea, vomiting, diarrhea, constipation or dysuria. Has not noted any blood in urine or stool. Patient has been eating and drinking appropriately. Review of systems: As per history of present illness and below otherwise all systems reviewed and negative. Past medical history: As per history of present illness and as reviewed below otherwise noncontributory. Surgical history: As per history of present illness and as reviewed below otherwise noncontributory. Social history: See social history for further information Family history: As per history of present illness and as reviewed below otherwise noncontributory. Physical exam: General: Well developed and well nourished. Alert and orientated x 3. Nontoxic in appearance and in no acute distress. Vital signs are stable and have been reviewed by me. Nursing notes were reviewed. HEENT: Atraumatic, normocephalic, pupils equal and reactive bilaterally, negative for conjunctival pallor or scleral icterus, mucous membranes moist, TMs normal bilaterally, throat clear, neck supple, nontender, trachea midline. No drooling or trismus noted. No meningeal signs. No hot potato voice noted. Lungs: Clear to auscultation bilaterally. No wheezes, rales, or rhonchi. Chest nontender. Normal work of breathing, no accessory muscles used. Heart: S1S2, regular rate and rhythm without overt murmur, gallops, or rubs. No JVD. No peripheral edema Abdomen: Soft, nondistended, nontender. Normoactive bowel sounds. Negative for masses or costovertebral tenderness. Skin: Intact, warm, dry. No lesions or rashes noted. Hematologic: No petechiae or purpra. Mucosa appropriate color and normal nail bed color and refill. Extremities: Left foot edematous and discolored with a purplish hue. Patient able to have slight movement in her toes. Moves all other extremities per self without difficulty or deficits, negative for cords or calf pain. Neurovascular unremarkable. Neuro: Awake, alert, oriented. Cranial nerves II through XII unremarkable. Cerebellum unremarkable. Motor and sensory unremarkable throughout. Exam nonfocal. Psychiatric: Mood and affect are appropriate. Normal thought process. Answering questions appropriately. Notes: *This patient was seen and evaluated during the 2019 SARS-CoV-2 novel coronavirus pandemic period. Community viral transmission is ongoing at time of this encounter and the emergency department is operating under pandemic response procedures. Stated above the patient is a 50-year-old female who dropped an air conditioner on her left foot at 11:00 today. She has significant swelling to that foot and purple discoloration. The patient did apply ice and has been using her crutches but the pain continues to get worse. I have ordered a left foot x-ray and will give the patient Toradol for pain control as she has driven herself here today. The patient is tearful after receiving her Toradol stating that she is still in pain. I have offered the patient a narcotic for pain control, however, she is driving and is unable to take the medication. Left foot x-ray IMPRESSION: Moderate soft tissue swelling over the dorsal aspect of the foot. Cortical irregularity with a lucent line at the distal aspect of the proximal 5th phalanx which extends to the articular surface. The margins appear corticated suggesting chronicity, however recommend correlation with point tenderness. I informed the patient of her fracture and of the the plan to luis tape her pinky toe and her fourth toe. The patient can wear a walking boot and I will prescribe her Kingston 325/5 mg 1 every 4 hours as needed for pain. Educated the patient on signs of compartment syndrome that she needs to return to the emergency department if anything happens. The patient is agreeable to this plan. I have talked with the patient about today's findings, in addition to providing specific details for plan of care. Reassessment at the time of disposition demonstrates that the patient is in no acute distress. The patient is stable for discharge, counseling was provided and we discussed in great detail signs and symptoms that would prompt them to return to the Emergency Department. Medication, follow up and supportive care measures were reviewed and discussed. Voices understanding and is agreeable to plan of care. Denies any further questions or concerns at this time. Diagnostics: Left foot x-ray Therapeutics: Toradol 60 mg, Walking shoe to left foot for patient comfort and joint stability and to promote healing. Patient to wear until follow-up with supervisor pressing department. Prescription: Kingston 325/5 mg 1 p.o. every 4 hours as needed for pain #12 Impression: Right fifth toe fracture and right foot contusion Plan: 1. You were evaluated today on an emergent basis. Your your left foot was evaluated after you dropped a air conditioner on it. Your left foot x-ray showed a fractured left fifth toe. We have taped the 2 toes together for stability and you can have a walking shoe for comfort. I have prescribed you Kingston 3/25 mg 1 every 4 hours for pain control. You are unable to drive after taking Kingston for at least 12 hours. You have soft tissue trauma to the top of your foot. You can use ice or heat for this. Attempt to keep your foot elevated. You will need to follow-up with a supervisor pressing department. 2. You can alternate Tylenol and ibuprofen as needed for pain and fever management. 3. We encourage you to follow up with your primary care provider and/or recommended specialist in the next few days for re-evaluation and further care/management. 4. If your symptoms should worsen, new symptoms develop or any of the signs and symptoms we discussed should arise please return to the emergency room or call 911 (if needed). Definitive disposition and diagnosis as appropriate pending reevaluation and review of above. - Related Data Allergies Allergy/AdvReac Type Severity Reaction Status Date / Time No Known Allergies Allergy Verified 01/02/21 16:56 Home Meds: Home Meds . [No Known Home Meds] 06/15/20 [History] Past Medical History - Past Health History Medical/Surgical History: Denies Medical/Surgical History HEENT History: Reports: Other (See Below) Other HEENT History: wears glasses Cardiovascular History: Reports: None Respiratory History: Reports: None Gastrointestinal History: Reports: GERD Other Gastrointestinal History: some heartburn Genitourinary History: Reports: None RACK PUSHER History: Reports: None Musculoskeletal History: Reports: None Other Musculoskeletal History: left knee surgery Neurological History: Reports: Migraines, Other (See Below) Other Neuro History: Hx. of motion sickness Psychiatric History: Reports: None Endocrine/Metabolic History: Reports: None Hematologic History: Reports: Blood Transfusion(s) Other Hematologic History: after delivery of both children Immunologic History: Reports: None Oncologic (Cancer) History: Reports: None Dermatologic History: Reports: None - Infectious Disease History Infectious Disease History: Reports: Chicken Pox - Past Surgical History Head Surgeries/Procedures: Reports: None HEENT Surgical History: Reports: None GI Surgical History: Reports: None Female Surgical History: Reports: Other (See Below) Other Female Surgeries/Procedures: parital hysterectomy Social & Family History - Family History Family Medical History: No Pertinent Family History Cardiac: Reports: Heart Failure GI: Reports: Colon Polyps Endocrine/Metabolic: Reports: Diabetes, type II - Tobacco Use Tobacco Use Status *Q: Never Tobacco User - Caffeine Use Caffeine Use: Reports: None Caffeine Use Comment: "a lot" - Recreational Drug Use Recreational Drug Use: No Review of Systems - Review of Systems Review Of Systems: Comprehensive ROS is negative, except as noted in HPI. ED EXAM, GENERAL - Physical Exam Exam: See Below (See dictation) Course - Vital Signs Last Recorded V/S: Last Vital Signs Temp 96.4 F L 01/02/21 16:51 Pulse 94 01/02/21 19:04 Resp 20 01/02/21 16:51 BP 183/120 H 01/02/21 19:04 Pulse Ox 98 01/02/21 19:04 - Orders/Labs/Meds Orders: Active Orders 24 hr Category Date Time Status DME for Discharge [COMM] Stat Oth 01/02/21 18:43 Ordered Meds: Medications Discontinued Medications Generic Name Dose Route Start Last Admin Trade Name Freq PRN Reason Stop Dose Admin Ketorolac Tromethamine 60 mg 01/02/21 17:00 01/02/21 17:08 Ketorolac 60 Mg/2 Ml Sdv IM 01/02/21 17:01 60 mg ONETIME ONE Administration Departure - Departure Time of Disposition: 18:41 Disposition: Home, Self-Care 01 Condition: Good Clinical Impression: Contusion of soft tissue Fracture of toe of left foot Qualifiers: Encounter type: initial encounter Toe: lesser toe Fracture type: closed Phalanx: proximal Fracture alignment: nondisplaced Qualified Code(s): S92.515A - Nondisplaced fracture of proximal phalanx of left lesser toe(s), initial encounter for closed fracture - Discharge Information *PRESCRIPTION DRUG MONITORING PROGRAM REVIEWED*: Not Applicable *COPY OF PRESCRIPTION DRUG MONITORING REPORT IN PATIENT DEVIKA: Not Applicable Instructions: Toe Fracture, [id number], Contusion, [id number] Referrals: PCP,None [Primary Care Provider] - Forms: ED Department Discharge Additional Instructions: The following information is given to patients seen in the emergency department who are being discharged to home. This information is to outline your options for follow-up care. We provide all patients seen in our emergency department with a follow-up referral. The need for follow-up, as well as the timing and circumstances, are variable depending upon the specifics of your emergency department visit. If you don't have a primary care physician on staff, we will provide you with a referral. We always advise you to contact your personal physician following an emergency department visit to inform them of the circumstance of the visit and for follow-up with them and/or the need for any referrals to a consulting specialist. The emergency department will also refer you to a specialist when appropriate. This referral assures that you have the opportunity for follow-up care with a specialist. All of these measure are taken in an effort to provide you with optimal care, which includes your follow-up. Under all circumstances we always encourage you to contact your private physician who remains a resource for coordinating your care. When calling for follow-up care, please make the office aware that this follow-up is from your recent emergency room visit. If for any reason you are refused follow-up, please contact the [facility] Emergency Department at and asked to speak to the emergency department charge nurse. [facility] [address] [place] [address] [id number] [facility] [address] [place] [address] Plan: 1. You were evaluated today on an emergent basis. Your your left foot was evaluated after you dropped a air conditioner on it. Your left foot x-ray showed a fractured left fifth toe. We have taped the 2 toes together for stability and you can have a walking shoe for comfort. I have prescribed you Kingston 3/25 mg 1 every 4 hours for pain control. You are unable to drive after taking Kingston for at least 12 hours. You have soft tissue trauma to the top of your foot. You can use ice or heat for this. Attempt to keep your foot elevated. You will need to follow-up with a supervisor pressing department. 2. You can alternate Tylenol and ibuprofen as needed for pain and fever management. 3. We encourage you to follow up with your primary care provider and/or recommended specialist in the next few days for re-evaluation and further care/management. 4. If your symptoms should worsen, new symptoms develop or any of the signs and symptoms we discussed should arise please return to the emergency room or call 911 (if needed). Sepsis Event Note (ED) - Evaluation Sepsis Screening Result: No Definite Risk - Focused Exam Vital Signs: Vital Signs Temp Pulse Resp BP Pulse Ox 01/02/21 19:04 94 183/120 H 98 01/02/21 16:51 96.4 F L 115 H 20 165/113 H 96 - My Orders Last 24 Hours: My Active Orders 01/02/21 18:43 DME for Discharge [COMM] Stat - Assessment/Plan Last 24 Hours: My Active Orders 01/02/21 18:43 DME for Discharge [COMM] Stat
--- NOTE | 2021-01-02 18:35 | CR ---
INDICATION: Left foot pain, crush injury. TECHNIQUE: X-ray left foot, 3 views. COMPARISON: None available. FINDINGS: The alignment is normal. There is a cortical irregularity with a lucent line in the proximal 5th phalanx which extends to the articular surface, the margins of which appear corticated. Otherwise no acute fracture is visualized. There is moderate soft tissue swelling over the dorsal aspect of the foot. There is a small calcaneal spur. IMPRESSION: Moderate soft tissue swelling over the dorsal aspect of the foot. Cortical irregularity with a lucent line at the distal aspect of the proximal 5th phalanx which extends to the articular surface. The margins appear corticated suggesting chronicity, however recommend correlation with point tenderness. Dictated by Ct Go MD @ 01/02/2021 6:34:[address] Go @ Jan 02 2021 6:34PM
[2021-01-02 19:05] VITALS: BP 183/120; PULSE 94
== END 2021-01-02 19:05 | disposition home or self-care (01) ==
LOC: MW.ED 16:42
DX: S92.515A Nondisplaced fracture of proximal phalanx of left lesser toe(s), initial encounter for closed fracture (principal); W20.8XXA Other cause of strike by thrown, projected or falling object, initial encounter
CPT/HCPCS: 73630; 96372; 99283; J1885

== ENCOUNTER 2021-02-23 19:28 | Emergency (ER) | payer MEDICAID | END 2021-02-23 20:09 | disposition left against medical advice (07) | LOC: MW.ED 19:28 | DX: Z53.21 Procedure and treatment not carried out due to patient leaving prior to being seen by health care provider (principal) ==

== ENCOUNTER 2023-07-26 19:04 | Emergency (ER) | payer MEDICAID ==
[2023-07-26] MEDS ORDERED: Lidocaine 4% 1 each Patch TOP STA (19:27)
[2023-07-26] MEDS ORDERED: Ibuprofen 400 MG Tab PO ONE (20:20)
[2023-07-26] MEDS ORDERED: Cyclobenzaprine 10 MG Tab PO ONE (20:20)
[2023-07-26] MEDS ORDERED: Acetaminophen/HYDROcodone 325-5 MG Tab PO ONE (21:56)
[2023-07-26 22:16] VITALS: BP 168/99; PULSE 79
== END 2023-07-26 22:15 | disposition home or self-care (01) ==
LOC: MW.ED 19:04
DX: S32.009A Unspecified fracture of unspecified lumbar vertebra, initial encounter for closed fracture (principal); I10 Essential (primary) hypertension; Z79.899 Other long term (current) drug therapy; W01.0XXA Fall on same level from slipping, tripping and stumbling without subsequent striking against object, initial encounter; Y92.89 Other specified places as the place of occurrence of the external cause; Y99.0 Civilian activity done for income or pay
CPT/HCPCS: 71046; 72131; 99284; A9270; 99283

== ENCOUNTER 2023-10-03 16:41 | Emergency (ER) | payer MEDICAID ==
[2023-10-03] MEDS: Ketorolac 30 MG/ML SDV IVPUSH ONE (17:15)
[2023-10-03] MEDS: Sodium Chloride 0.9% 1,000 ML IV ONE (17:15)
[2023-10-03 17:31] LABS: BASOPHILS ABSOLUTE AUTO 0.01 K/uL (0.00-0.20); BASOPHILS PERCENT AUTO 0.2 % (0.0-1.0); HEMATOCRIT 43.6 % (37.0-47.0); IMMATURE GRAN ABSOLUTE AUTO 0.02 K/uL (0.00-0.05); IMMATURE GRAN PERCENT AUTO 0.4 % (0.0-0.4); LYMPHOCYTES ABSOLUTE AUTO 1.52 K/uL (1.00-4.80); LYMPHOCYTES PERCENT AUTO 26.8 % (24.0-44.0); MEAN CORPUSCULAR HEMOGLOBIN 31.1 pg (28.0-32.0); MEAN CORPUSCULAR HGB CONC 36.7 g/dL (32.0-36.0); MEAN CORPUSCULAR VOLUME 84.7 fL (83.0-99.0); MEAN PLATELET VOLUME 8.7 fL (9.4-12.3); MONOCYTES ABSOLUTE AUTO 0.96 K/uL (0.00-0.80); MONOCYTES PERCENT AUTO 16.9 % (0.0-8.0); NEUTROPHILS ABSOLUTE AUTO 3.16 K/uL (1.80-7.70); NEUTROPHILS PERCENT AUTO 55.7 % (41.0-71.0); PLATELET COUNT,PLT 168 K/uL (150-400); RED BLOOD CELL COUNT 5.15 M/uL (4.10-5.30); WHITE BLOOD CELL COUNT,WBC 5.67 K/uL (3.9-11.3)
[2023-10-03 18:03] LABS: A/G RATIO 0.9 (0.9-1.6); ALBUMIN 3.3 g/dL (3.4-5.0); BILIRUBIN TOTAL 0.5 mg/dL (0.2-1.0); CALCIUM 8.7 mg/dL (8.5-10.1); CARBON DIOXIDE,CO2 25.3 mmol/L (21.0-32.0); CREATININE 0.8 mg/dL (0.6-1.0); EST CRCL DRUG DOSING (CG) 86.93 mL/min; POTASSIUM,K 3.3 mmol/L (3.5-5.1); PROTEIN TOTAL,TP 7.1 g/dL (6.4-8.2)
[2023-10-03 18:14] LABS: CORONAVIRUS COVID-19 NAA NEGATIVE (NEGATIVE); INFLUENZA A NAA NEGATIVE (NEGATIVE); INFLUENZA B NAA POSITIVE (NEGATIVE); RESPIRATORY SYNCYTIAL VIR NAA NEGATIVE (NEGATIVE)
[2023-10-03 19:00] VITALS: BP 120/70; PULSE 76
== END 2023-10-03 19:00 | disposition home or self-care (01) ==
LOC: MW.ED 16:41
DX: J10.1 Influenza due to other identified influenza virus with other respiratory manifestations (principal); Z75.8 Other problems related to medical facilities and other health care; Z86.19 Personal history of other infectious and parasitic diseases
CPT/HCPCS: 0241U; 36415; 71045; 80053; 85025; 96361; 96374; 99284; J1885; J7030